=== PATIENT | female | born 1960 | race Caucasian/White ===

== ENCOUNTER 2016-07-21 16:47 | Emergency (ER) | payer OTHER ==
[~2016-07-21] VITALS: Ht 152.4 cm; Wt 64.4 kg
[2016-07-21 16:48] VITALS: BP 145/107
[2016-07-21] MEDS ORDERED: LORazepam 0.5 MG TAB PO ONE (17:15)
[2016-07-21] MEDS ORDERED: ASPirin 81 mg TAB PO ONE (17:15)
[2016-07-21 17:31] LABS: Basophils # (auto) 0 uL; Basophils % (auto) 0.4 % (0.0-2.0); Eosinophils # (auto) 0.3 uL; Eosinophils % (auto) 3.4 % (0.0-7.0); Hematocrit 46.7 % (36.0-46.0); Hemoglobin 14.9 g/dL (12.2-16.2); Lymphocytes # (auto) 2.9 uL; Lymphocytes % (auto) 34.7 % (10.0-50.0); Mean Corpuscular Hemoglobin 28.8 pg (28.0-32.0); Mean Corpuscular Volume 90.2 fL (80.0-100.0); Mean Platelet Volume 9.2 fL (7.4-10.4); Monocytes # (auto) 0.4 uL; Monocytes % (auto) 5.3 % (0.0-12.0); Neutrophils # (auto) 4.7 uL; Neutrophils % (auto) 56.2 % (37.0-80.0); Platelet Count (auto) 275 10^3/uL (140-450); Red Cell Distribution Width 13.6 % (11.6-16.0); White Blood Cell 8.4 10^3/uL (4.4-10.8)
[2016-07-21 17:56] LABS: Albumin 3.9 g/dL (3.4-5.0); BUN/Creatinine Ratio 13.6; Calcium 9.4 mg/dL (8.5-10.1); Potassium 3.7 mmol/L (3.5-5.1)
[2016-07-21 17:58] LABS: Bilirubin, Total 0.5 mg/dL (0.2-1.0); Total Protein 8.3 g/dL (6.4-8.2)
== END 2016-07-21 18:49 | disposition home or self-care (01) ==
LOC: ER 16:50
DX: H81.09 Meniere's disease, unspecified ear (principal); M19.90 Unspecified osteoarthritis, unspecified site; E07.9 Disorder of thyroid, unspecified; F17.210 Nicotine dependence, cigarettes, uncomplicated
CPT/HCPCS: 36415; 80053; 84484; 85025; 93005